=== PATIENT | male | born 1995 | race African-American/Black ===

== ENCOUNTER 2016-12-13 09:07 | Emergency (ER) | payer OTHER | END 2016-12-13 11:21 | disposition home or self-care (01) | LOC: ER 09:07 | DX: S63.521A Sprain of radiocarpal joint of right wrist, initial encounter (principal); W00.0XXA Fall on same level due to ice and snow, initial encounter; Y92.009 Unspecified place in unspecified non-institutional (private) residence as the place of occurrence of the external cause ==